=== PATIENT | female | born 1980 | race Two or more races ===

== ENCOUNTER 2023-03-14 15:16 | Emergency (ER) | payer OTHER ==
[~2023-03-14] VITALS: Ht 170.2 cm; Wt 90.7 kg
[2023-03-14] MEDS ORDERED: PRENA1 CHEW TA1.4 MG PO (15:41)
== END 2023-03-15 11:47 | disposition home or self-care (01) ==
LOC: ER 15:16
DX: N61.0 Mastitis without abscess (principal); Z20.822 Contact with and (suspected) exposure to COVID-19; B34.9 Viral infection, unspecified

== ENCOUNTER 2023-04-06 15:50 | Emergency (ER) | payer OTHER ==
[~2023-04-06] VITALS: Ht 170.2 cm; Wt 90.7 kg
[~2023-04-06 15:50] MED LIST: PRENA1 CHEW TA1.4 MG PO
[2023-04-06] MEDS ORDERED: DUI500 PO (19:45)
[2023-04-06] MEDS ORDERED: TENCON 50-3251 EACH PO (19:45)
== END 2023-04-06 20:13 | disposition home or self-care (01) ==
LOC: ER 15:50
PROVIDERS: General Practice
DX: R51.9 Headache, unspecified (principal); R11.2 Nausea with vomiting, unspecified; N61.0 Mastitis without abscess

== ENCOUNTER 2023-07-04 17:49 | Emergency (ER) | payer OTHER ==
[~2023-07-04] VITALS: Ht 170.2 cm; Wt 79.4 kg
[~2023-07-04 17:49] MED LIST changes: +DUI500 PO; +TENCON 50-3251 EACH PO
[2023-07-04 19:28] LABS: HEMATOCRIT 41.8 % (36.0-45.00); HEMOGLOBIN 14.3 g/dL (12.0-15.00); MEAN CELL VOLUME 87.4 fL (80.00-100.00); MEAN CORPUSCULAR HEMOGLOBIN 29.9 pg (27.00-32.0); MEAN CORPUSCULAR HGB CONC 34.3 g/dl (32.0-36.0); PLATELET COUNT 314 K/uL (150-450); RED BLOOD COUNT 4.78 M/uL (4.00-6.00); RED CELL DISTRIBUTION WIDTH 15.4 % (11.5-14.5)
[2023-07-04 19:42] LABS: BILIRUBIN TOTAL 0.43 mg/dL (0.3-1.2); CALCIUM 9.2 mg/dL (8.5-10.1); CREATININE SERUM 0.64 mg/dL (0.55-1.02); GFR 101.76; GLOBULINA 3.8 G/DL (2.4-3.5); POTASSIUM 4.25 mEq/L (3.5-5.1); TOTAL PROTEIN 7.8 gm/dL (6.4-8.2)
[2023-07-04] MEDS ORDERED: PEPCID AC20 MG PO (20:48)
[2023-07-04] MEDS ORDERED: ZOFRAN8 MG PO (20:48)
[2023-07-04] MEDS ORDERED: BUTALB-ACETAMI1 EAC2 PO (20:48)
== END 2023-07-04 20:56 | disposition home or self-care (01) ==
LOC: ER 17:50
PROVIDERS: General Practice
DX: K52.89 Other specified noninfective gastroenteritis and colitis (principal); Z20.822 Contact with and (suspected) exposure to COVID-19

== ENCOUNTER 2024-10-29 18:15 | Emergency (ER) | payer OTHER ==
[~2024-10-29] VITALS: Ht 170.2 cm; Wt 86.2 kg
[~2024-10-29 18:15] MED LIST changes: +BUTALB-ACETAMI1 EAC2 PO; +PEPCID AC20 MG PO; +ZOFRAN8 MG PO
[2024-10-29] MEDS ORDERED: ACETAMINOPHEN 500 MG GEL..CAP PO ONE (19:30)
[2024-10-29] MEDS ORDERED: CETIRIZINE HCL 5 MG/5 ML ML PO ONE (19:30)
[2024-10-29] MEDS ORDERED: ONDANSETRON HCL 2 MG/ML VIAL IV ONE (19:30)
[2024-10-29] MEDS ORDERED: DEXAMETHASONE SODIUM PHOSPHATE 4 MG/ML VIAL IM ONE (19:30)
[2024-10-29] MEDS ORDERED: GUAIFENESIN/DEXTROMETHORPHAN 100MG/10ML BLIST.PACK PO ONE (19:30)
[2024-10-29 20:34] LABS: HEMATOCRIT 41.2 % (36.0-45.00); HEMOGLOBIN 14.1 g/dL (12.0-15.00); MEAN CELL VOLUME 89.1 fL (80.00-100.00); MEAN CORPUSCULAR HEMOGLOBIN 30.4 pg (27.00-32.0); MEAN CORPUSCULAR HGB CONC 34.2 g/dl (32.0-36.0); PLATELET COUNT 272 K/uL (150-450); RED BLOOD COUNT 4.62 M/uL (4.00-6.00); RED CELL DISTRIBUTION WIDTH 14.3 % (11.5-14.5)
[2024-10-29 20:54] LABS: ALBUMIN 3.9 gm/dL (3.4-5.0); BILIRUBIN TOTAL 0.25 mg/dL (0.3-1.2); CALCIUM 8.7 mg/dL (8.5-10.1); CREATININE SERUM 0.83 mg/dL (0.55-1.02); GFR 75.03; POTASSIUM 4.29 mEq/L (3.5-5.1); TOTAL PROTEIN 7.9 gm/dL (6.4-8.2)
[2024-10-29] MEDS ORDERED: ONDANSETRON ODT8 MG PO (20:55)
[2024-10-29] MEDS ORDERED: TUSNEL LIQUID178 ML PO (20:55)
[2024-10-29] MEDS ORDERED: OSEL75CA PO (20:55)
[2024-10-29] MEDS ORDERED: OSELTAMIVIR PHOSPHATE 75 MG CAPSULE PO ONE (21:00)
== END 2024-10-29 20:59 | disposition home or self-care (01) ==
LOC: ER 18:18
PROVIDERS: General Practice
DX: R53.81 Other malaise (principal); J10.1 Influenza due to other identified influenza virus with other respiratory manifestations; B34.9 Viral infection, unspecified; Z20.822 Contact with and (suspected) exposure to COVID-19